=== PATIENT | male | born 1985 | race Hispanic/Latino ===

== ENCOUNTER 2016-09-28 15:49 | Emergency (ER) | payer OTHER ==
[~2016-09-28] VITALS: Ht 175.3 cm; Wt 90.9 kg
[~2016-09-28 15:49] MED LIST: OMEP20TA86 PO
[2016-09-28 16:15] VITALS: BP 135/73; PULSE 67; RESP 17; O2SAT 93
--- NOTE | 2016-09-28 16:21 | ED.REPORT ---
HPI-General Illness Date of Service Sep 28, 2016 ED Provider: The patient is a 30 year old male with history of anxiety and hypertension, who was brought to the emergency department today by EMS for chest pain that started approximately 1 hour prior to arrival. The patient describes the pain as a pressure and tightness. He also reports anxiety, dizziness, lightheadedness , and left arm numbness. He has had hand numbness in the past and has an appointment scheduled to be evaluated for carpal tunnel. His pain was about a 5/ 10 when it started and lasted for about 30 minutes. His symptoms resolved spontaneously. He was given 4 morphine and 4 Zofran by medics en route to the ED. He does not have any complaints at this time. He denies headache, visual changes, abdominal pain or focal weakness. He smokes tobacco daily. Nursing Notes Stated Complaint: CHEST PAIN Chief Complaint: Chest Pain Nursing Notes Reviewed: Yes Allergies: Coded Allergies: No Known Allergies (Verified Allergy, Unknown, 08/15/14) Scheduled Omeprazole (Omeprazole) 20 Mg Tablet.dr 20 MG PO BID General Time Seen by MD: 16:21 Chief Complaint Chest pain Hx Obtained From: Patient, EMS Arrived By: Ambulance Sudden in Onset?: Yes Onset Occurred: 1 - 4 hours ago Symptom Duration: 1 - 4 hours Location: : Chest Quality: Painful (tightness) Radiation: : Arm left (numbness) Severity: Current: No pain currently Severity: Maximum: Pain level 5 out of 10 Recent Healthcare: No recent doctor visit, No recent hospitalization Similar Sx Previous: Yes Past Medical History Past Medical History Anxiety Hypertension Past Surgical History Appendectomy Family History Noncontributory Smoking History Current Every Day Smoker Social History Alcohol Use: Denies alcohol use Drug Use: Denies drug use, THC Other Social History: Good social support, Frequent ED visitor, Lives with children, Local resident Ambulatory Status Independent Review of Systems Full Review of Systems Cardiovascular: Reports: Chest pain GI: Denies: Abdominal pain Neurologic: Reports: Dizziness, Lightheaded, Numbness (left arm), Denies: Focal weakness, Headache, Vision change, Weakness Psychiatric: Reports: Anxiety Complete sys rev & neg: except as marked. Physical Exam Nursing note and vitals reviewed. Constitutional: Well-developed, well-nourished. Not diaphoretic. Head: Normocephalic and atraumatic. Mouth/Throat: Oropharynx is clear and moist. No oropharyngeal exudate. Eyes: EOM are normal. Pupils are equal, round, and reactive to light. Neck: Supple, no tracheal deviation. Cardiovascular: Normal rate, regular rhythm. Equal and intact distal pulses throughout. Pulmonary/Chest: Effort normal and breath sounds normal. No respiratory distress. Abdominal: Soft. No distension. There is no tenderness, rebound, or guarding. Bowel sounds present. Musculoskeletal: Range of motion grossly intact, moving all extremities. No edema or tenderness appreciated. Neurological: AOx3. Grossly nonfocal exam. Strength and sensation intact and equal to bilateral upper and lower extremities. Skin: Warm and dry, no rashes or pallor appreciated. Psychiatric: Appropriate mood and affect. Behavior appears normal. Vital Signs Vital Signs Date Time Temp Pulse Resp B/P Pulse Ox O2 Delivery O2 Flow Rate FiO2 09/28/16 16:15 36.8 67 17 135/73 93 Room Air Initial VS: Reviewed Interpretation & Diagnostics Lab Results Interpretation Result Diagram: 09/28/16 1629 09/28/16 1629 Test 09/28/16 16:29 White Blood Count 9.3th/mm3 (3.8-10.1) Red Blood Count 4.97mil/mm3 (4.40-5.80) Hemoglobin 15.9g/dL (13.8-17.2) Hematocrit 45.6% (41.0-50.0) Mean Corpuscular Volume 91.8fL (81-100) Mean Corpuscular Hemoglobin 32.0pg (27.0-35.0) Mean Corpuscular Hemoglobin Concent 34.9% (32.0-37.0) Red Cell Distribution Width 11.9% (12.3-15.4) Platelet Count 201bil/L (150-400) Neutrophils (%) (Auto) 56.0% (40-74) Lymphocytes (%) (Auto) 29.2% (14-46) Monocytes (%) (Auto) 9.5% (4-12) Eosinophils (%) (Auto) 4.8% (0-5) Basophils (%) (Auto) 0.3% (0-3) Sodium Level 137mEq/L (134-144) Potassium Level 4.5mEq/L (3.5-5.2) Chloride Level 99mEq/L (97-108) Carbon Dioxide Level 21mmol/L (18-29) Blood Urea Nitrogen 13mg/dL (6-20) Creatinine 0.72mg/dL (0.76-1.27) Estimat Glomerular Filtration Rate 135mL/min (>59) Glucose Level 111mg/dL (60-99) Calcium Level 9.2mg/dL (8.5-10.1) Magnesium Level 2.0mg/dL (1.6-2.6) Total Bilirubin 0.2mg/dL (0.0-1.2) Aspartate Amino Transf (AST/SGOT) 24U/L (0-50) Alanine Aminotransferase (ALT/SGPT) 31U/L (0-44) Alkaline Phosphatase 73U/L (25-150) Troponin T < 0.010ug/L (0.0-0.011) Total Protein 7.2g/dL (6.4-8.4) Albumin 4.2g/dL (3.4-5.0) Hold Leigh Top Tube Received (Received) ECG Interpretation ECG Interpretation: Sinus rhythm with a rate of [address] segment changes compared to prior EKG Time: 16:26 Interpreted by: ED physician X-Ray Chest Interpretation Chest Xray Interpretation: IMPRESSION: Density in the left mid lung zone may represent pneumonia or atelectasis. Recommend followup 2 view chest radiograph to resolution to rule out a mass. Dictated by: Capo Bone M.D. on 09/28/2016 at 18:52 Interpretation / Wet Read by: Interpret - Radiologist Re-Eval/Medical Decision Med Decision/Clinical Course 30-year-old male presenting to the ED for evaluation of chest pain. No significant risk factors known, including no family history of significant coronary artery disease. HEART score of 1. History and examination, clinical presentation does not seem consistent with PE. Initial laboratory studies were reassuring, troponin negative. Chest x-ray unremarkable. Before completion of our evaluation, patient eloped. He was not able to receive full return precautions or discuss leaving AMA. Source of Hx: Old records, EMS Time of Eval: 17:30 Re-Evaluation/Progress Note: Smoking cessation provided. Discussed plan for repeat troponin. Time of Eval: 17:50 Re-Evaluation/Progress Note: The patient eloped prior to completion of evaluation. Discharge & Departure Departure Notes ELOPED Primary Impression: Chest pain Chest pain type: unspecified Qualified Code: R07.9 - Chest pain, unspecified Disposition: AGAINST MEDICAL ADVICE (ELOPED) Discharge Condition All VS Reviewed: Yes Condition: Stable Referrals: [facility] (PCP) Scribe Attestation Portions of this note were transcribed by Jesika Childress. I, Dr. Lechuga personally performed the history, physical exam and medical decision-making; I reviewed and confirmed the accuracy of the information in the transcribed note. Signed by: Jo Saleh, 09/28/2016 at 1910. copies to: [facility] Nolan Lechuga MD Sep 28, 2016 16:21 Jesika Cihldress Sep 28, 2016 16:47
[2016-09-28 16:38] LABS: BASOPHILS % (AUTO) 0.3 % (0-3); EOSINOPHILS % (AUTO) 4.8 % (0-5); MONOCYTES % (AUTO) 9.5 % (4-12); Mean Corpuscular Volume 91.8 fL (81-100); Platelet Count 201 bil/L (150-400)
[2016-09-28 17:02] LABS: TROPONIN T < 0.010 ug/L (0.0-0.011)
--- NOTE | 2016-09-28 18:56 | DRSVH ---
PROCEDURE: X-RAY CHEST ONE VIEW, PORTABLE ([id number]) INDICATIONS: CHEST PAIN TECHNIQUE: One view of the chest was acquired. COMPARISON: [facility], CR, XR CHEST 2VW, 01/27/2015, 19:58. [facility], CR , CHEST 2VW, 08/15/2014, 23:15. [facility], CR, XR CHEST 2VW, 02/06/2016, 16:46. FINDINGS: Surgical changes and devices: None. Lungs and pleura: There is a density in the left midlung zone. No pleural effusions or pneumothorax. Mediastinum: Mediastinal contours appear normal. Heart size is normal. Bones and chest wall: No suspicious bony lesions. Overlying soft tissues appear unremarkable. IMPRESSION: Density in the left mid lung zone may represent pneumonia or atelectasis. [facility] resolution to rule out a mass. Dictated by: Capo Bone M.D. on 09/28/2016 at 18:52 Approved by: Capo Bone M.D. on 09/28/2016 at 18:54
== END 2016-09-28 18:12 | disposition left against medical advice (07) ==
LOC: SED 15:49 → EDUNIT# 15:49 → EDBD 15:49 → SED 18:12
DX: R07.89 Other chest pain (principal); F41.9 Anxiety disorder, unspecified; R42 Dizziness and giddiness; R20.2 Paresthesia of skin; I10 Essential (primary) hypertension; F17.200 Nicotine dependence, unspecified, uncomplicated